=== PATIENT | male | born 1985 | race Two or more races ===

== ENCOUNTER 2020-08-21 15:54 | Emergency (ER) | payer OTHER ==
[~2020-08-21] VITALS: Ht 180.3 cm; Wt 68.0 kg
[2020-08-21 16:33] VITALS: BP 141/91
--- NOTE | 2020-08-21 16:51 | PHYS DOC ---
Past Medical History Past Medical History: No Pertinent History Past Surgical History: No Surgical History Smoking Status: Never Smoker Alcohol Use: Occasionally General Adult EDM: Chief Complaint: FEVER HPI: HPI: Patient is a 35 year old male who presents to the emergency department with request for a work note. Patient reports that 2 days ago he called into work because he felt tired and had a little bit of a cough. He denies any fever, nausea, vomiting, diarrhea, abdominal pain, sore throat, rash, shortness of breath, ear pain, headache, or body aches. He denies any fatigue or cough at this time. The patient currently denies any pain or complaints. He denies any known exposure to anyone with COVID-19. Review of Systems: Review of Systems: Complete ROS is negative unless otherwise stated in the HPI. Heart Score: Risk Factors: Risk Factors: DM, Current or recent (<one month) smoker, HTN, HLP, family history of CAD, obesity. Risk Scores: Score 0 - 3: 2.5% MACE over next 6 weeks - Discharge Home Score 4 - 6: 20.3% MACE over next 6 weeks - Admit for Clinical Observation Score 7 - 10: 72.7% MACE over next 6 weeks - Early Invasive Strategies Physical Exam: PE: Constitutional: Well developed, well nourished, no acute distress, non-toxic appearance. [] HENT: Normocephalic, atraumatic, bilateral external ears normal, nose normal. [] Eyes: PERRLA, EOMI, conjunctiva normal, no discharge. [] Neck: Normal range of motion, no stridor. [] Cardiovascular:Heart rate regular rhythm Lungs & Thorax: Respirations even and unlabored, no retractions, no respiratory distress, lungs CTA Skin: Warm, dry, no erythema, no rash. [] Extremities: No cyanosis, ROM intact, no edema. [] Neurologic: Alert and oriented X 3, no focal deficits noted. [] Psychologic: Affect normal, judgement normal, mood normal. [] Current Patient Data: Vital Signs: Vital Signs Date Time Temp Pulse Resp B/P (MAP) Pulse Ox O2 Delivery O2 Flow Rate FiO2 08/21/20 16:33 98.4 88 16 141/91 (108) 98 Room Air 98.4 EKG: EKG: [] Radiology/Procedures: Radiology/Procedures: [] Course & Med Decision Making: Course & Med Decision Making Pertinent Labs and Imaging studies reviewed. (See chart for details) Patient presented to the emergency room for release back to work. Physical exam was unremarkable. The patient denied any complaints. Vital signs were stable. A return to work note was written for the patient. Patient encouraged to return to the emergency room if he started to feel worse or follow-up with his primary care doctor. Patient verbalized an understanding of home care, medications, follow-up, and return to ED instructions and was in agreement with the plan of care. [] Dragon Disclaimer: Dragon Disclaimer: This electronic medical record was generated, in whole or in part, using a voice recognition dictation system. Departure Departure Impression: Primary Impression: Encounter for medical screening examination Disposition: HOME, SELF-CARE Condition: STABLE Referrals: NO PCP (PCP) Patient Instructions: Medical Screening Exam Additional Instructions: Your physical exam today was completely normal. Follow-up with your primary care doctor as needed. Return to the ER symptoms worsen. [facility] PT Aug 21, 2020 16:51
== END 2020-08-21 16:59 | disposition home or self-care (01) ==
LOC: ER 15:54
DX: R05 Cough (principal)
CPT/HCPCS: 99281